=== PATIENT | female | born 2000 | race Caucasian/White ===

== ENCOUNTER → 2021-01-10 13:55 | Outpatient (CLI) | payer OTHER, SELFPAY ==
--- NOTE | 2021-01-10 14:01 | DI.RAD.S_ITS ---
PROCEDURE: XR KNEE LT 3V INDICATIONS: knee pain TECHNIQUE: 3 views of the knee were acquired. COMPARISON: None. FINDINGS: Bones: No fractures or dislocations. No suspicious bony lesions. Soft tissues: Moderate joint effusion. No suspicious soft tissue calcifications. IMPRESSION: Moderate effusion. No visualized acute fracture or dislocation. However, if clinical concern and/or pain persist, short interval imaging followup in 7-10 days is recommended, as occult injury cannot be definitively excluded. Dictated by: Bethanie Barbosa M.D. on 01/10/2021 at 14:21 Approved by: Bethanie Barbosa M.D. on 01/10/2021 at 14:23
== END ==
PROVIDERS: Referring Provider Physician Assistant; Visit Provider Physician Assistant
DX: M25.562 Pain in left knee (principal); M25.462 Effusion, left knee
CPT/HCPCS: 73562

== ENCOUNTER 2021-05-26 05:53 | Emergency (ER) | payer OTHER, SELFPAY ==
[2021-05-26 05:59] VITALS: BP 126/73; PULSE 83; RESP 18; TEMP 36.8; O2SAT 96; BMI 19.9
--- NOTE | 2021-05-26 06:07 | ED_ITS ---
HPI - Asthma General Chief Complaint: Asthma Stated Complaint: asthma attack Time Seen by Provider: 05/26/21 05:57 Source: patient Mode of arrival: Ambulatory History of Present Illness HPI Narrative: the patient is a 20-year-old female who presents with shortness of breath. She has a history of asthma. She says it has been controlled for number of years but was diagnosed when she was younger. she has never been hospitalized or intu bated. Yesterday she said she was not feeling great started having difficulty breathing early this morning about 1 hour prior to arrival today. She used her albuterol inhaler all having a coughing fit. She said that she looked it up on the Internet and she could use it every minute until her coughing. Which is what she did. She is no longer coughing but still feels wheezing and short of breath. She denies any fever chills or productive. Related Data Home Medications Medication Instructions Recorded Confirmed No Known Home Medications 01/10/21 01/10/21 Allergies Allergy/AdvReac Type Severity Reaction Status Date / Time No Known Drug Allergies Allergy Unverified 01/10/21 13:32 Review of Systems Review of Systems Narrative: GENERAL: Denies chills, fatigue, malaise, fever, sweats, travel HEENT: Denies sinus pain, ear pain, sore throat, difficulty swallowing, neck pain RESPIRATORY: See HPI CARDIOVASCULAR: Denies chest pain, palpitations, orthopnea, edema GASTROINTESTINAL: Denies nausea, vomiting, abdominal pain, diarrhea, constipation, melena. : Denies dysuria, frequency, incontinence, hematuria, urinary retention, flank pain. MUSCULOSKELETAL: Denies weakness, joint pain, or bony pain SKIN: No rash, no erythema, no pruritus NEUROLOGIC: Denies weakness, dizziness, headache, numbness, change in speech, confusion PSYCHIATRIC: No concerning psychosocial issues. 12 point review of systems is negative except for those stated above and HPI Patient History Medical History Asthma Social History Smoking Status: Current every day smoker Smoking Status: Current every day smoker tobacco type: vaping alcohol intake frequency: holidays/special occasions only Exam Initial Vital Signs Initial Vital Signs: Vital Signs Temperature 98.2 F 05/26/21 05:59 Pulse Rate 83 05/26/21 05:59 Respiratory Rate 18 05/26/21 05:59 Blood Pressure 126/73 05/26/21 05:59 Pulse Oximetry 96 05/26/21 05:59 GENERAL: [Well-appearing, well-nourished] and in [no acute] distress. HEENT: Head atraumatic,EOMI, pupils reactive, CARDIOVASCULAR: Regular rate and rhythm without murmurs, rubs or gallops. RESPIRATORY: Wheezing bilaterally no tachypnea speaking full sentences without any difficulty ABDOMEN: Soft, nontender. Normoactive bowel sounds all 4 quadrants. No guarding or rebound EXTREMITIES: Normal range of motion, no clubbing or edema. Neurovascularly intact NEUROLOGICAL: Alert and oriented x4.Normal gait and speech. SKIN: Warm, dry, no laceration, no petechiae, no rashes or lesions. Course Orders Ordered: Discontinued Medications Albuterol/Ipratropium (Albuterol/Ipratropium 3 Ml Ampul) 3 ml INH NOW ONE Stop: 05/26/21 06:07 Last Admin: 05/26/21 06:13 Dose: 3 ml Documented by: [email or web address] Vital Signs Vital signs: Vital Signs - 8 hr 05/26/21 05:59 05/26/21 06:13 Temperature 98.2 F Pulse Rate 83 95 H Respiratory Rate 18 18 Blood Pressure 126/73 Pulse Oximetry 96 95 MDM - Asthma MDM Narrative Medical decision making narrative: PATIENT IS FEELING BETTER AFTER A DUONEB. OXYGEN HAS BEEN GOOD THE WHOLE TIME. BREATHING HAS IMPROVED AFTER TREATMENT. AT THIS TIME I SEE NO NEED FOR STEROIDS. ENCOURAGED HER TO USE SPACER AND INHALER IS EVERY 4 HOURS TODAY. This time no need for antibiotics or further workup Discharge Plan Departure Patient Disposition: Home Clinical Impression: Asthma with acute exacerbation Instructions: DI for Asthma -- Adult Activity Restrictions/Additional Instructions: *You have been diagnosed with asthma exacerbation *What to do: use albuterol inhaler with spacer every 4 hours to today possibly tomorrow. I having an exacerbation due to probable infection or environmental issue. *Continue to take medications as directed Albuterol 1-2 puffs every 4 hours with spacer, or as needed for shortness of breath or coughing spell *Follow up with your primary care provider in 2-3 days or call [phone] *Return to ER if you should have increasing shortness of breath, chest pain, chest tightness, fever greater than 100.4 [or] any new, worsening or concerning symptoms Prescriptions: No Action No Known Home Medications 0RF Referrals: Miscellaneous,Doctor[facility] [Primary Care Provider] -
[2021-05-26 06:13] VITALS: PULSE 95; RESP 18; O2SAT 95
[2021-05-26] MEDS: ALBUTEROL/IPRATROPIUM 3 ML AMPUL INH (06:13)
== END 2021-05-26 06:51 | disposition home or self-care (01) ==
PROVIDERS: Emergency Provider Emergency Medicine
DX: J45.901 Unspecified asthma with (acute) exacerbation (principal)
CPT/HCPCS: 94640; 99283

== ENCOUNTER 2021-06-03 14:28 | Emergency (ER) | payer OTHER, BC, SELFPAY ==
[2021-06-03 14:55] VITALS: BP 133/66; PULSE 89; RESP 18; TEMP 36.8; O2SAT 95
--- NOTE | 2021-06-03 15:01 | DI.RAD.S_ITS ---
PROCEDURE: XR CHEST 1V INDICATIONS: chest pain TECHNIQUE: One view of the chest was acquired. COMPARISON: None. FINDINGS: Surgical changes and devices: None. Lungs and pleura: Lungs are clear. No pleural effusions or pneumothorax. Mediastinum: Mediastinal contours appear normal. Heart size is normal. Bones and chest wall: No suspicious bony lesions. There is 22.9? rightward curvature of the thoracic spine. Overlying soft tissues appear unremarkable. IMPRESSION: No acute cardiopulmonary findings. Right convex scoliosis. Dictated by: Rhonda Aguilar M.D. on 06/03/2021 at 15:30 Approved by: Rhonda Aguilar M.D. on 06/03/2021 at 15:30
--- NOTE | 2021-06-03 15:09 | ED.CHESTPAIN ---
HPI - Chest Pain <Tory Mcintosh [facility] - Last Filed: 06/03/21 16:23> General Chief Complaint: Chest Pain Stated Complaint: SHARP CHEST PAIN LEFT SIDE ASTHMA ATTACK A WK AGO Time Seen by Provider: 06/03/21 15:09 Source: patient Mode of arrival: Ambulatory History of Present Illness HPI narrative: 20-year-old female presents to the emergency department 1 week following acute exacerbation of her asthma complaining of left-sided chest pain which is reproducible with palpation. She states that she has been coughing and it has been painful with cough, deep breath, and most movements. She states that she acquired a nebulizer machine and has been doing her albuterol nebs which has improved her asthma. She states that she no longer feels short of breath, or wheezing, and her asthma exacerbation has improved. She has a pending appointment to establish primary care at [facility]. Patient endorses a history of scoliosis, she is not currently in physical therapy, she denies any recent trauma. She denies chest pain, shortness of breath or wheezing, nausea, fever. She states that her left chest, shoulder, and back up all been sore and tender to touch for the last 3-4 days. She states is been getting worse over the last few and she was not sure if she pulled a muscle or why it is painful. Patient states that she has seasonal allergies and she has not been taking any medications for this yet. Related Data Previous Rx's Medication Instructions Recorded albuterol sulfate 0.63 mg/3 mL 0.63 mg (3 mL) INHALATION QID PRN 05/28/21 solution for nebulization #75 ml cetirizine 10 mg tablet (Zyrtec) 10 mg PO DAILY PRN #30 tab 06/03/21 fluticasone propionate 50 1 spray INTRANASAL BID #16 g 06/03/21 mcg/actuation nasal spray,suspension lidocaine 5 % topical patch 1 patch TOPICAL DAILY #15 ea 06/03/21 (Lidoderm) methocarbamol 500 mg tablet 500 mg PO TID PRN #14 tab 06/03/21 montelukast 10 mg tablet 10 mg PO BEDTIME #30 tab 06/03/21 (Singulair) omeprazole magnesium 20 mg 20 mg PO DAILY #7 tab 06/03/21 tablet,delayed release prednisone 50 mg tablet 50 mg PO DAILY 5 Days #5 tab 06/03/21 Allergies Allergy/AdvReac Type Severity Reaction Status Date / Time No Known Drug Allergies Allergy Unverified 01/10/21 13:32 Review of Systems <AMBERLY Dinh - Last Filed: 06/03/21 16:23> Review of Systems Narrative: General: denies fever, chills, malaise, sweats, fatigue Head/Neck: denies headache, neck pain, dizziness Eyes: denies visual changes, eye pain Cardio: denies chest pain, palpitations, edema Respiratory: denies dyspnea, cough, orthopnea or shortness of breath with exertion, endorses occasional cough related to her allergies and asthma GI: denies abdominal pain, nausea, vomiting, or diarrhea : denies dysuria, hematuria, urinary retention, frequency or incontinence MSK: denies joint pain, muscle weakness, endorses left chest shoulder and back pain and soreness, is reproducible with palpation Skin: denies rash, itching, skin lesions or other Neuro: denies numbness, tingling Patient History <AMBERLY Dinh - Last Filed: 06/03/21 16:23> Medical History Asthma Social History Smoking Status: Current every day smoker Smoking Status: Current every day smoker tobacco type: vaping alcohol intake frequency: holidays/special occasions only Exam <AMBERLY Dinh - Last Filed: 06/03/21 16:23> Narrative Exam Narrative: Independently reviewed vitals signs and nursing notes. General: cooperative, comfortable, in no acute distress, well developed and well groomed Head: atraumatic, symmetrical facial expressions Neck: supple, atraumatic, without lymphadenopathy. Eyes: pupils equal round and reactive, EOMI, conjunctiva normal Nose: nares patent, no rhinorrhea Mouth/Throat: uvula midline, moist mucus membranes Cardiovascular: regular rate and rhythm, no peripheral edema, warm extremities Respiratory: normal effort, able to speak in complete sentences, scattered inspiratory and expiratory wheezes throughout all lung meng, no retractions or tachypnea. GI: abdomen soft, nontender to palpation, nondistended, no masses, no exquisite tenderness with exam, without guarding or rebound. MSK: moves all extremities, ambulatory w/steady gait, neurovascularly intact, no weakness Skin: brisk capillary refill, no rash, no erythema Neuro: normal speech and cognition, A&O x3, normal tone Psych: mental status is grossly normal, congruent mood, normal affect, pleasant and cooperative Initial Vital Signs Initial Vital Signs: Vital Signs Temperature 98.3 F 06/03/21 14:55 Pulse Rate 89 06/03/21 14:55 Respiratory Rate 18 06/03/21 14:55 Blood Pressure 133/66 06/03/21 14:55 Pulse Oximetry 95 06/03/21 14:55 <Jose Luis Flores DO - Last Filed: 06/04/21 10:35> Initial Vital Signs Initial Vital Signs: Vital Signs Temperature 98.3 F 06/03/21 14:55 Pulse Rate 89 06/03/21 14:55 Respiratory Rate 18 06/03/21 14:55 Blood Pressure 133/66 06/03/21 14:55 Pulse Oximetry 95 06/03/21 14:55 Course <AMBERLY Dinh - Last Filed: 06/03/21 16:23> Orders Ordered: Discontinued Medications Albuterol/Ipratropium (Albuterol/Ipratropium 3 Ml Ampul) 3 ml INH NOW ONE Stop: 06/03/21 15:19 Last Admin: 06/03/21 15:59 Dose: 3 ml Documented by: PANTERAIM Methocarbamol (Methocarbamol 500 Mg Tablet) 500 mg PO NOW ONE Stop: 06/03/21 15:19 Last Admin: 06/03/21 15:42 Dose: 500 mg Documented by: NURYS Montelukast Sodium (Montelukast 10 Mg Tablet) 10 mg PO DAILY BIN Montelukast Sodium (Montelukast 10 Mg Tablet) 10 mg PO NOW ONE Stop: 06/03/21 15:31 Last Admin: 06/03/21 15:42 Dose: 10 mg Documented by: NURYS Naproxen (Naproxen 250 Mg Tablet) 250 mg PO NOW ONE Stop: 06/03/21 15:19 Last Admin: 06/03/21 15:42 Dose: 250 mg Documented by: NURYS Pantoprazole Sodium (Pantoprazole Dr 20 Mg Tablet) 20 mg PO NOW ONE Stop: 06/03/21 15:22 Last Admin: 06/03/21 15:42 Dose: 20 mg Documented by: NURYS Prednisone (Prednisone 20 Mg Tablet) 50 mg PO NOW ONE Stop: 06/03/21 15:19 Last Admin: 06/03/21 15:40 Dose: 50 mg Documented by: NURYS Vital Signs Vital signs: Vital Signs - 8 hr 06/03/21 14:55 06/03/21 15:46 06/03/21 15:47 Temperature 98.3 F Pulse Rate 89 78 80 Respiratory Rate 18 Blood Pressure 133/66 125/83 Pulse Oximetry 95 93 98 06/03/21 16:00 Temperature Pulse Rate 61 Respiratory Rate Blood Pressure 123/89 Pulse Oximetry 100 <Jose Luis Flores DO - Last Filed: 06/04/21 10:35> Orders Ordered: Discontinued Medications Albuterol/Ipratropium (Albuterol/Ipratropium 3 Ml Ampul) 3 ml INH NOW ONE Stop: 06/03/21 15:19 Last Admin: 06/03/21 15:59 Dose: 3 ml Documented by: MKIM Methocarbamol (Methocarbamol 500 Mg Tablet) 500 mg PO NOW ONE Stop: 06/03/21 15:19 Last Admin: 06/03/21 15:42 Dose: 500 mg Documented by: NRUYS Montelukast Sodium (Montelukast 10 Mg Tablet) 10 mg PO DAILY BIN Montelukast Sodium (Montelukast 10 Mg Tablet) 10 mg PO NOW ONE Stop: 06/03/21 15:31 Last Admin: 06/03/21 15:42 Dose: 10 mg Documented by: NURYS Naproxen (Naproxen 250 Mg Tablet) 250 mg PO NOW ONE Stop: 06/03/21 15:19 Last Admin: 06/03/21 15:42 Dose: 250 mg Documented by: NURYS Pantoprazole Sodium (Pantoprazole Dr 20 Mg Tablet) 20 mg PO NOW ONE Stop: 06/03/21 15:22 Last Admin: 06/03/21 15:42 Dose: 20 mg Documented by: NURYS Prednisone (Prednisone 20 Mg Tablet) 50 mg PO NOW ONE Stop: 06/03/21 15:19 Last Admin: 06/03/21 15:40 Dose: 50 mg Documented by: NURYS Vital Signs Vital signs: Vital Signs - 8 hr 06/03/21 14:55 06/03/21 15:46 06/03/21 15:47 Temperature 98.3 F Pulse Rate 89 78 80 Respiratory Rate 18 Blood Pressure 133/66 125/83 Pulse Oximetry 95 93 98 06/03/21 16:00 Temperature Pulse Rate 61 Respiratory Rate Blood Pressure 123/89 Pulse Oximetry 100 MDM - Chest Pain <AMBERLY Dinh - Last Filed: 06/03/21 16:23> Lab Data Result diagrams: 06/03/21 15:30 Labs: Lab Results 06/03/21 06/03/21 Range/Units 10:28 15:30 Sodium 139 (137-145) mmol/L Potassium 3.8 (3.4-5.1) mmol/L Chloride 104 (98-107) mmol/L Carbon Dioxide 25 (22-32) mmol/L BUN 12 (7-17) mg/dL Creatinine 0.68 (0.52-1.04) mg/dL Estimated GFR > 60.0 (>60) mL/min BUN/Creatinine Ratio 17.6 (6-22) Glucose 77 (70-100) mg/dL Calcium 8.8 (8.4-10.2) mg/dL Magnesium 2.1 (1.6-2.3) mg/dL Total Bilirubin 0.5 (0.2-1.3) mg/dL AST 21 (14-36) IU/L ALT 16 (<35) IU/L Alkaline Phosphatase 109 (38-126) U/L Total Creatine Kinase 43 (30-135) U/L CK-MB (CK-2) TNP CK-MB (CK-2) Rel Index TNP Troponin I < 0.012 (0.01-0.034) ng/mL Total Protein 7.8 (6.3-8.2) g/dL Albumin 4.3 (3.5-5.0) g/dL Globulin 3.5 (1.7-4.1) g/dL Albumin/Globulin Ratio 1.2 (1.0-2.8) Lipase 82 (23-300) U/L SARS-CoV-2 (PCR) Negative (Negative) Imaging Data Chest x-ray: Radiologist's Impression: PROCEDURE:? XR CHEST 1V ? INDICATIONS:? chest pain ? TECHNIQUE:? One view of the chest was acquired.? ? COMPARISON:? None. ? FINDINGS:? ? Surgical changes and devices:? None.? ? Lungs and pleura:? Lungs are clear.? No pleural effusions or pneumothorax.? ? Mediastinum:? Mediastinal contours appear normal.? Heart size is normal.? ? Bones and chest wall:? No suspicious bony lesions.? There is 22.9? rightward curvature of the thoracic spine.? Overlying soft tissues appear unremarkable.? ? IMPRESSION:? No acute cardiopulmonary findings. Right convex scoliosis.? ? Dictated by: Rhonda Aguilar M.D. on 06/03/2021 at 15:30 ? ? Approved by: Rhonda Aguilar M.D. on 06/03/2021 at 15:30 ? MDM Narrative Medical decision making narrative: This is a 20-year-old female presents to the emergency department 1 week after being treated for an asthma exacerbation stating she has left sided rib shoulder and back pain muscle tension. On Physical exam patient had scattered inspiratory and expiratory wheezes. She states that she has been using a nebulizer machine at home and her asthma symptoms have improved. She is here for this left-sided costochondral pain which is reproducible with palpation, left arm movements, deep inspiration, and coughing. She has been afebrile, denies any nausea, vomiting, shortness of breath, shortness of breath with exertion, weakness, sensation changes, dizziness, trauma, or other problem. On chest x-ray patient did not have any rib fractures, pneumothorax, or acute cardiopulmonary abnormality. Was notable that she has right convex scoliosis with a 22.9 degree rightward curvature of the thoracic spine. Patient states that she has had this problem as long as she is known, she is not currently in any physical therapy however she wishes to address it. Patient is pending a primary care appointment with a new provider at [facility]. Today patient was treated for an asthma exacerbation, has significant seasonal allergies, she requested Zyrtec and Singulair and these were prescribed for her, additionally she is given fluticasone, lidocaine patches for her costochondral pain, prednisone for 5 days for her asthma exacerbation with omeprazole for GI ulcer prophylaxis. She states that she has plenty albuterol nebulizers at home. She understands to follow-up with her primary care provider when she establishes care, return to the emergency department for any new or worsening shortness of breath, fever, chest pain, or other concerns. Multiple causes of chest pain considered including RI, PE, pneumothorax, pneumonia, aortic dissection, and pleurisy. Patient reports no radiation, no diaphoresis, no provocation with exertion, and no vomiting. Patient was given 1 DuoNeb in the emergency department which greatly improved her inspiratory and expiratory wheezes, only scattered occasional expiratory wheezes were heard after her neb. patient was not in any respiratory distress. Patient Is appropriate and amenable to discharge home. Vital signs are stable on repeat examination is unremarkable. Patient has been informed of results. Patient has been given strict return to ER precautions for any new or worsening symptoms. Patient understands to follow up closely with outpatient providers as instructed. Patient understands plan and agrees to discharge home. All questions and concerns answered at this time. <Jose Luis Flores DO - Last Filed: 06/04/21 10:35> Lab Data Labs: Lab Results 06/03/21 06/03/21 Range/Units 10:28 15:30 Sodium 139 (137-145) mmol/L Potassium 3.8 (3.4-5.1) mmol/L Chloride 104 (98-107) mmol/L Carbon Dioxide 25 (22-32) mmol/L BUN 12 (7-17) mg/dL Creatinine 0.68 (0.52-1.04) mg/dL Estimated GFR > 60.0 (>60) mL/min BUN/Creatinine Ratio 17.6 (6-22) Glucose 77 (70-100) mg/dL Calcium 8.8 (8.4-10.2) mg/dL Magnesium 2.1 (1.6-2.3) mg/dL Total Bilirubin 0.5 (0.2-1.3) mg/dL AST 21 (14-36) IU/L ALT 16 (<35) IU/L Alkaline Phosphatase 109 (38-126) U/L Total Creatine Kinase 43 (30-135) U/L CK-MB (CK-2) TNP CK-MB (CK-2) Rel Index TNP Troponin I < 0.012 (0.01-0.034) ng/mL Total Protein 7.8 (6.3-8.2) g/dL Albumin 4.3 (3.5-5.0) g/dL Globulin 3.5 (1.7-4.1) g/dL Albumin/Globulin Ratio 1.2 (1.0-2.8) Lipase 82 (23-300) U/L SARS-CoV-2 (PCR) Negative (Negative) Discharge Plan Departure Patient Disposition: Home Clinical Impression: Costal chondritis, Acute seasonal allergic rhinitis Asthma with acute exacerbation Qualifiers: Asthma severity: moderate Scoliosis Qualifiers: Scoliosis type: unspecified scoliosis Spinal region: thoracic Qualified Code(s): M41.9 - Scoliosis, unspecified Instructions: Asthma -- Adult, DI for Costochondritis, Scoliosis-Adult Activity Restrictions/Additional Instructions: *You have been diagnosed with costochondritis and an acute asthma exacerbation. Please take the prednisone for the next 5 days in the morning. Use the methocarbamol every 8 hours as needed for the left chest pain. Please use your montelukast, cetirizine and omeprazole daily. You may stop taking the omeprazole after you are done with steroids. Please use ibuprofen and Tylenol as needed for pain. You can use lidocaine patches over this area on your chest as needed. Please use the Flonase nasal spray as needed for your allergies morning and night. I recommend physical therapy for your scoliosis, please ask your primary care provider for a referral when you establish care. Thank you for trusting us with your care, I hope you are feeling better soon and are able to establish care with a primary care provider soon. Please mention that you need follow-up from the emergency department visit you had today. This may help you get in sooner. *What to do: *Please continue to take your regular medications as directed. [ x] New medication prescriptions sent to your pharmacy: [[facility] ] [ ] New medication written as a paper prescription [ ] No new medications given *Please follow up with your primary care provider in 2-3 days, call for an appointment. Let them know you were seen in the Emergency Department and that we asked that you be seen for follow-up. We will electronically transmit a record of today's note if your PCP is in our system *If you do not have a primary care provider please contact [phone] to establish care with one of the [facility] primary care providers. *Return to Emergency Department if you should have any new, worsening or concerning symptoms, such as [fever greater than 101F, chills, worsening pain, persistent vomiting or other bothersome symptoms] Prescriptions: New prednisone 50 mg tablet 50 mg PO DAILY 5 Days Qty: 5 0RF montelukast [Singulair] 10 mg tablet 10 mg PO BEDTIME Qty: 30 0RF cetirizine [Zyrtec] 10 mg tablet 10 mg PO DAILY PRN (Reason: allergy symptoms) Qty: 30 0RF fluticasone propionate 50 mcg/actuation spray,suspension 1 spray intranasal BID Qty: 16 0RF Rx Instructions: administer into each nostril methocarbamol 500 mg tablet 500 mg PO TID PRN (Reason: muscle spasm) Qty: 14 0RF lidocaine [Lidoderm] 5 % adhesive patch,medicated 1 patch topical DAILY Qty: 15 0RF Rx Instructions: leave on most painful area for up to 12 hrs omeprazole magnesium 20 mg tablet,delayed release (DR/EC) 20 mg PO DAILY Qty: 7 0RF No Action albuterol sulfate 0.63 mg/3 mL solution for nebulization 0.63 mg INHALATION QID PRN (Reason: shortness of breath or wheezing) Qty: 75 0RF Stand Alone Forms: Work Release Note <Jose Luis Flores DO - Last Filed: 06/04/21 10:35> Cosign ED Attending Cosignature Attestation: I was immediately available in the department for consultation. This documentation has been reviewed and I agree with assessment and plan. Supervised by Jose Luis Flores DO
[2021-06-03] MEDS: predniSONE 20 MG TABLET 50 MG PO (15:40)
[2021-06-03] MEDS: methocarbamoL 500 MG TABLET PO (15:42)
[2021-06-03] MEDS: PANTOPRAZOLE DR 20 MG TABLET PO (15:42)
[2021-06-03] MEDS: NAPROXEN 250 MG TABLET PO (15:42)
[2021-06-03] MEDS: MONTELUKAST 10 MG TABLET PO (15:42)
[2021-06-03 15:46] VITALS: PULSE 78; O2SAT 93
[2021-06-03 15:47] VITALS: BP 125/83; PULSE 80; O2SAT 98
[2021-06-03 15:53] LABS: COVID19 -Nasal RAPID Negative (Negative)
[2021-06-03] MEDS: ALBUTEROL/IPRATROPIUM 3 ML AMPUL INH (15:59)
[2021-06-03 16:00] VITALS: BP 123/89; PULSE 61; O2SAT 100; O2SAT 98
[2021-06-03 16:00] LABS: Alanine Aminotransferase 16 IU/L (<35); Albumin 4.3 g/dL (3.5-5.0); Albumin Globulin Ratio 1.2 (1.0-2.8); Alkaline Phosphatase 109 U/L (38-126); Aspartate Aminotransferase 21 IU/L (14-36); BUN Creatinine Ratio 17.6 (6-22); Bilirubin Total 0.5 mg/dL (0.2-1.3); Blood Urea Nitrogen 12 mg/dL (7-17); Calcium 8.8 mg/dL (8.4-10.2); Carbon Dioxide 25 mmol/L (22-32); Chloride 104 mmol/L (98-107); Creatine Kinase 43 U/L (30-135); Estimated Glomerular Filt Rate > 60.0 mL/min (>60); Globulin 3.5 g/dL (1.7-4.1); Glucose 77 mg/dL (70-100); HEMOLYSIS < 15 (0-50); Lipase 82 U/L (23-300); Magnesium 2.1 mg/dL (1.6-2.3); Potassium 3.8 mmol/L (3.4-5.1); Sodium 139 mmol/L (137-145); Total Protein 7.8 g/dL (6.3-8.2)
[2021-06-03 16:13] LABS: Troponin I < 0.012 ng/mL (0.01-0.034)
== END 2021-06-03 16:29 | disposition home or self-care (01) ==
PROVIDERS: Emergency Medicine; Emergency Provider Nurse Practitioner Critical Care Medicine
DX: M94.0 Chondrocostal junction syndrome [Tietze] (principal); J30.2 Other seasonal allergic rhinitis; J45.41 Moderate persistent asthma with (acute) exacerbation; M41.9 Scoliosis, unspecified; F17.290 Nicotine dependence, other tobacco product, uncomplicated; Z20.822 Contact with and (suspected) exposure to COVID-19
CPT/HCPCS: 36415; 71045; 80053; 82550; 83690; 83735; 84484; 87635; 93005; 93010; 94640; 99284; C9803

== ENCOUNTER 2021-07-20 12:16 | Emergency (ER) | payer OTHER, BC, SELFPAY ==
[2021-07-20 12:19] VITALS: BP 128/89; PULSE 90; RESP 18; TEMP 36.9; O2SAT 94; BMI 18.6
--- NOTE | 2021-07-20 12:25 | DI.RAD.S_ITS ---
PROCEDURE: XR CHEST 2V INDICATIONS: shortness of breath TECHNIQUE: 2 views of the chest were acquired. COMPARISON: [facility], , XR CHEST 1V, 06/03/2021, 14:52. FINDINGS: Surgical changes and devices: None. Lungs and pleura: Lungs are clear. No pleural effusions or pneumothorax. Mediastinum: Mediastinal contours are normal. Heart size is normal. Bones and chest wall: No suspicious bony abnormalities. Soft tissues appear unremarkable. IMPRESSION: No acute process. Dictated by: Rodrick Villa M.D. on 07/20/2021 at 13:12 Approved by: Rodrick Villa M.D. on 07/20/2021 at 13:12
[2021-07-20] MEDS: ALBUTEROL 2.5 MG/3 ML NEB (ADULT) INH (12:34)
[2021-07-20 12:36] VITALS: O2SAT 97
[2021-07-20 12:43] LABS: COVID19 -Nasal RAPID Negative (Negative)
[2021-07-20 13:23] LABS: Add Manual Diff / Slide Review NO; Basophils Absolute Auto 300 /uL (0-100); Basophils Percent Auto 2.5 % (0-2); Eosinophils Absolute Auto 1300 /uL (0-450); Eosinophils Percent Auto 12.4 % (2-4); Hematocrit 40.8 % (36-46); Lymphocytes Absolute Auto 1300 /uL (1100-4500); Lymphocytes Percent Auto 12.2 % (25-40); Mean Corpuscular HGB Conc 34.4 % (30-36); Mean Corpuscular Volume 87.1 fL (80-100); Monocytes Absolute Auto 700 /uL (0-900); Monocytes Percent Auto 6.3 % (3-14); Neutrophils Absolute Auto 7200 /uL (1500-7000); Neutrophils Percent Auto 66.6 % (50-75); Platelet Count 230 X10^3/uL (150-400); Red Blood Cell Count 4.68 X10^6/uL (4.0-5.2); Red Cell Distribution Width 13.8 % (11.6-14.8); White Blood Cell Count 10.8 X10^3/uL (4.5-11.0)
[2021-07-20 13:31] LABS: Lactate (Lactic Acid) 1.6 mmol/L (0.7-2.1)
[2021-07-20 13:33] LABS: Alanine Aminotransferase 14 IU/L (<35); Albumin 4.5 g/dL (3.5-5.0); Albumin Globulin Ratio 1.2 (1.0-2.8); Alkaline Phosphatase 122 U/L (38-126); Aspartate Aminotransferase 22 IU/L (14-36); BUN Creatinine Ratio 9.1 (6-22); Blood Urea Nitrogen 6 mg/dL (7-17); Carbon Dioxide 22 mmol/L (22-32); Chloride 106 mmol/L (98-107); Estimated Glomerular Filt Rate > 60 mL/min (>60); Globulin 3.7 g/dL (1.7-4.1); Glucose 108 mg/dL (70-100); HEMOLYSIS < 15 (0-50); Potassium 3.5 mmol/L (3.4-5.1); Sodium 141 mmol/L (137-145); Total Protein 8.2 g/dL (6.3-8.2)
--- NOTE | 2021-07-20 14:06 | ED.SOB ---
HPI - SOB/Dyspnea General Chief Complaint: Shortness of Breath/Dyspnea Stated Complaint: Asthma Time Seen by Provider: 07/20/21 13:46 Source: patient Mode of arrival: Ambulatory Limitations: no limitations History of Present Illness HPI Narrative: The patient has a history of asthma, her entire life. She developed increased cough with dyspnea wheezing 4 days ago. Albuterol was working for 5-10 minutes only. She uses a spacer. She has no headache, no rhinorrhea no sore throat. Cough is not productive. She has no fever chills. She is a smoker. In addition asthma medications, she is also on allergy medications. She has no chest pain, no GI symptoms, no rashes. There is no suggestion of acute illness. Related Data Previous Rx's Medication Instructions Recorded albuterol sulfate 0.63 mg/3 mL 0.63 mg (3 mL) INHALATION QID PRN 05/28/21 solution for nebulization #75 ml cetirizine 10 mg tablet (Zyrtec) 10 mg PO DAILY PRN #30 tab 06/03/21 lidocaine 5 % topical patch 1 patch TOPICAL DAILY #15 ea 06/03/21 (Lidoderm) methocarbamol 500 mg tablet 500 mg PO TID PRN #14 tab 06/03/21 omeprazole magnesium 20 mg 20 mg PO DAILY #7 tab 06/03/21 tablet,delayed release albuterol sulfate 90 mcg/actuation 1 inh INHALATION Q4-6H PRN #8.5 g 06/25/21 aerosol inhaler beclomethasone dipropionate 80 1 inh INHALATION BID #10.6 g 06/25/21 mcg/actuation HFA breath activated aerosol (Qvar RediHaler) fluticasone propionate 50 See Rx Instructions .ROUTE 07/08/21 mcg/actuation nasal .COMPLEX #16 g spray,suspension montelukast 10 mg tablet See Rx Instructions .ROUTE 07/08/21 .COMPLEX #30 tab prednisone 20 mg tablet 60 mg PO DAILY 5 Days #15 tab 07/20/21 Allergies Allergy/AdvReac Type Severity Reaction Status Date / Time No Known Drug Allergies Allergy Unverified 06/25/21 09:22 Review of Systems Review of Systems ROS Unobtainable: All systems reviewed & are unremarkable except as noted in HPI and below Patient History Medical History Asthma Social History Smoking Status: Current every day smoker alcohol intake: current (Occasionally ) substance use type: marijuana (Some days ) Smoking Status: Current every day smoker tobacco type: vaping alcohol intake frequency: holidays/special occasions only Substance Use Type: does not use Exam Initial Vital Signs Initial Vital Signs: Vital Signs Temperature 98.4 F 07/20/21 12:19 Pulse Rate 90 07/20/21 12:19 Respiratory Rate 18 07/20/21 12:19 Blood Pressure 128/89 07/20/21 12:19 Pulse Oximetry 94 07/20/21 12:19 Const General: cooperative, healthy appearing, comfortable and well groomed HENMT Head: normal to inspection Face and sinus: normal facial exam and sinuses nontender Mouth: oropharynx normal Throat: posterior oropharynx normal Neck Neck: full ROM and No lymphadenopathy Resp Other: expiratory wheezes in all lung meng. No rales or rhonchi. Cardio Rate: regular rate Rhythm: regular rhythm Heart Sounds: S1 normal, S2 normal, no click, no murmurs and no rubs GI Palpation: soft Auscultation: normal bowel sounds Skin General: no rashes or lesions noted Neuro General: patient alert, patient awake, patient oriented x3 and no focal motor deficits Course Course Course Narrative: The patient was given DuoNeb the prednisone. She has residual slight wheezes. Her albuterol inhaler is empty, she has not refilled. She was treated with 2 puffs of albuterol, and dispensed a new inhaler. Lungs are clear at time of discharge Orders Ordered: ED Orders 07/20/21 12:25 XR chest 2V Stat Measure peak expiratory flow ONCE RT Consult Eval and Treat Now 07/20/21 12:26 COVID19 -Nasal RAPID/Pre-Proc Stat 07/20/21 13:05 Complete Blood Count AUTO DIFF Stat Comprehensive Metabolic Panel Stat Lactate (Lactic Acid) Stat Discontinued Medications Albuterol (Albuterol 2.5 Mg/3 Ml Neb (Adult)) 2.5 mg INH NOW ONE Stop: 07/20/21 12:25 Last Admin: 07/20/21 12:34 Dose: 2.5 mg Documented by: [email or web address] Albuterol (Albuterol Hfa Prepack) 1 box MISC SEEINSTR ONE Stop: 07/20/21 15:51 Last Admin: 07/20/21 16:03 Dose: 1 box Documented by: JYOTI Albuterol/Ipratropium (Albuterol/Ipratropium 3 Ml Ampul) 3 ml INH NOW ONE Stop: 07/20/21 14:07 Last Admin: 07/20/21 14:22 Dose: 3 ml Documented by: ELYSIA Prednisone (Prednisone 20 Mg Tablet) 60 mg PO NOW ONE Stop: 07/20/21 14:07 Last Admin: 07/20/21 14:21 Dose: 60 mg Documented by: JACQUELIN Vital Signs Vital signs: Vital Signs - 8 hr 07/20/21 12:19 07/20/21 12:36 07/20/21 14:24 Temperature 98.4 F Pulse Rate 90 82 Respiratory Rate 18 16 Blood Pressure 128/89 Pulse Oximetry 94 97 99 07/20/21 16:04 Temperature Pulse Rate 77 Respiratory Rate 18 Blood Pressure 125/80 Pulse Oximetry 96 MDM - SOB/Dyspnea Lab Data Result diagrams: 07/20/21 13:05 07/20/21 13:05 Labs: Lab Results 07/20/21 07/20/21 07/20/21 Range/Units 12:26 13:05 13:05 WBC 10.8 (4.5-11.0) X10^3/uL RBC 4.68 (4.0-5.2) X10^6/uL Hgb 14.0 (12.0-16.0) g/dL Hct 40.8 (36-46) % MCV 87.1 (80-100) fL MCH 30.0 (26-34) PG MCHC 34.4 (30-36) % RDW 13.8 (11.6-14.8) % Plt Count 230 (150-400) X10^3/uL Neut % (Auto) 66.6 (50-75) % Lymph % (Auto) 12.2 L (25-40) % [place] % (Auto) 6.3 (3-14) % Eos % (Auto) 12.4 H (2-4) % Baso % (Auto) 2.5 H (0-2) % Neut # (Auto) 7200 H (3065-0635) /uL Lymph # (Auto) 1300 (4932-6987) /uL [place] # (Auto) 700 (0-900) /uL Eos # (Auto) 1300 H (0-450) /uL Baso # (Auto) 300 H (0-100) /uL Sodium 141 (137-145) mmol/L Potassium 3.5 (3.4-5.1) mmol/L Chloride 106 (98-107) mmol/L Carbon Dioxide 22 (22-32) mmol/L BUN 6 L (7-17) mg/dL Creatinine 0.66 (0.52-1.04) mg/dL Estimated GFR > 60 (>60) mL/min BUN/Creatinine Ratio 9.1 (6-22) Glucose 108 H (70-100) mg/dL Lactate (0.7-2.1) mmol/L Calcium 9.0 (8.4-10.2) mg/dL Total Bilirubin 1.0 (0.2-1.3) mg/dL AST 22 (14-36) IU/L ALT 14 (<35) IU/L Alkaline Phosphatase 122 (38-126) U/L Total Protein 8.2 (6.3-8.2) g/dL Albumin 4.5 (3.5-5.0) g/dL Globulin 3.7 (1.7-4.1) g/dL Albumin/Globulin Ratio 1.2 (1.0-2.8) SARS-CoV-2 (PCR) Negative (Negative) 07/20/21 Range/Units 13:05 WBC (4.5-11.0) X10^3/uL RBC (4.0-5.2) X10^6/uL Hgb (12.0-16.0) g/dL Hct (36-46) % MCV (80-100) fL MCH (26-34) PG MCHC (30-36) % RDW (11.6-14.8) % Plt Count (150-400) X10^3/uL Neut % (Auto) (50-75) % Lymph % (Auto) (25-40) % [place] % (Auto) (3-14) % Eos % (Auto) (2-4) % Baso % (Auto) (0-2) % Neut # (Auto) (5372-0713) /uL Lymph # (Auto) (0264-1228) /uL [place] # (Auto) (0-900) /uL Eos # (Auto) (0-450) /uL Baso # (Auto) (0-100) /uL Sodium (137-145) mmol/L Potassium (3.4-5.1) mmol/L Chloride (98-107) mmol/L Carbon Dioxide (22-32) mmol/L BUN (7-17) mg/dL Creatinine (0.52-1.04) mg/dL Estimated GFR (>60) mL/min BUN/Creatinine Ratio (6-22) Glucose (70-100) mg/dL Lactate 1.6 (0.7-2.1) mmol/L Calcium (8.4-10.2) mg/dL Total Bilirubin (0.2-1.3) mg/dL AST (14-36) IU/L ALT (<35) IU/L Alkaline Phosphatase (38-126) U/L Total Protein (6.3-8.2) g/dL Albumin (3.5-5.0) g/dL Globulin (1.7-4.1) g/dL Albumin/Globulin Ratio (1.0-2.8) SARS-CoV-2 (PCR) (Negative) Imaging Data Chest x-ray: Radiologist's Impression: Normal Discharge Plan Departure Patient Disposition: Home Clinical Impression: Asthma with exacerbation Instructions: DI for Asthma -- Adult Activity Restrictions/Additional Instructions: Albuterol 2 puffs every 4 hours for cough/wheezing. Prednisone 60 mg daily for 5 days. The medication has been electronically forwarded to [facility]'s pharmacy. Stop smoking as soon as possible. Contact her doctor for follow-up. Discussed her current medications, you may need symptoms in addition to the albuterol for your asthma. Return here as needed. Prescriptions: New prednisone 20 mg tablet 60 mg PO DAILY 5 Days Qty: 15 0RF No Action montelukast 10 mg tablet See Rx Instructions .ROUTE .COMPLEX Qty: 30 0RF Dose Instruction: TAKE 1 TABLET BY MOUTH AT BEDTIME FOR ASTHMA Rx Instructions: TAKE 1 TABLET BY MOUTH AT BEDTIME FOR ASTHMA fluticasone propionate 50 mcg/actuation spray,suspension See Rx Instructions .ROUTE .COMPLEX Qty: 16 0RF Dose Instruction: SHAKE LIQUID AND USE 1 SPRAY IN EACH NOSTRIL TWICE DAILY FOR ALLERGY SYMPTOMS Rx Instructions: SHAKE LIQUID AND USE 1 SPRAY IN EACH NOSTRIL TWICE DAILY FOR ALLERGY SYMPTOMS Qvar RediHaler 80 mcg/actuation HFA aerosol breath activated 1 inh inhalation BID Qty: 10.6 5RF Rx Instructions: administer with spacer albuterol sulfate 90 mcg/actuation HFA aerosol inhaler 1 inh inhalation Q4-6H PRN (Reason: shortness of breath or wheezing) Qty: 8.5 5RF albuterol sulfate 0.63 mg/3 mL solution for nebulization 0.63 mg INHALATION QID PRN (Reason: shortness of breath or wheezing) Qty: 75 0RF cetirizine [Zyrtec] 10 mg tablet 10 mg PO DAILY PRN (Reason: allergy symptoms) Qty: 30 0RF methocarbamol 500 mg tablet 500 mg PO TID PRN (Reason: muscle spasm) Qty: 14 0RF lidocaine [Lidoderm] 5 % adhesive patch,medicated 1 patch topical DAILY Qty: 15 0RF Rx Instructions: leave on most painful area for up to 12 hrs omeprazole magnesium 20 mg tablet,delayed release (DR/EC) 20 mg PO DAILY Qty: 7 0RF Referrals: Brigid Jewell MD [Primary Care Provider] -
[2021-07-20] MEDS: predniSONE 20 MG TABLET 60 MG PO (14:21)
[2021-07-20] MEDS: ALBUTEROL/IPRATROPIUM 3 ML AMPUL INH (14:22)
[2021-07-20 14:24] VITALS: PULSE 82; RESP 16; O2SAT 99
[2021-07-20] MEDS: ALBUTEROL HFA PREPACK 1 BOX MISC (16:03)
[2021-07-20 16:04] VITALS: BP 125/80; PULSE 77; RESP 18; O2SAT 96
== END 2021-07-20 16:17 | disposition home or self-care (01) ==
PROVIDERS: Emergency Provider Emergency Medicine; PCP Family Medicine
DX: J45.901 Unspecified asthma with (acute) exacerbation (principal); Z20.822 Contact with and (suspected) exposure to COVID-19
CPT/HCPCS: 71046; 80053; 83605; 85025; 87635; 94150; 94640; 99283; C9803; J7613

== ENCOUNTER 2022-01-18 01:40 | Emergency (ER) | payer OTHER, BC, SELFPAY ==
[2022-01-18] VITALS (15 sets, daily range): BP systolic 105–184; BP diastolic 53–94; PULSE 92–133; RESP 26–32; TEMP 36.3; O2SAT 84–98; BMI 17.9
[2022-01-18] MEDS: ALBUTEROL 2.5 MG/3 ML NEB (ADULT) INH (01:51)
[2022-01-18] MEDS: ALBUTEROL 2.5 MG/3 ML NEB (ADULT) 20 MG INH (01:58)
[2022-01-18] MEDS: methylPREDNISolone 125 MG/2 ML VIAL IV (02:05)
[2022-01-18] MEDS: SODIUM CHLORIDE 0.9% 1,000 ML 1000 ML IV (02:05)
[2022-01-18 02:06] LABS: Add Manual Diff / Slide Review NO; Basophils Absolute Auto 100 /uL (0-100); Basophils Percent Auto 0.9 % (0-2); Eosinophils Absolute Auto 1400 /uL (0-450); Eosinophils Percent Auto 9.1 % (2-4); Hematocrit 44.7 % (36-46); Lymphocytes Absolute Auto 5400 /uL (1100-4500); Lymphocytes Percent Auto 34.4 % (25-40); Mean Corpuscular HGB Conc 33.6 % (30-36); Mean Corpuscular Hemoglobin 29.9 PG (26-34); Monocytes Absolute Auto 1300 /uL (0-900); Monocytes Percent Auto 8.2 % (3-14); Neutrophils Absolute Auto 7400 /uL (1500-7000); Neutrophils Percent Auto 47.4 % (50-75); Platelet Count 315 X10^3/uL (150-400); Red Blood Cell Count 5.02 X10^6/uL (4.0-5.2); Red Cell Distribution Width 13.4 % (11.6-14.8); White Blood Cell Count 15.7 X10^3/uL (4.5-11.0)
--- NOTE | 2022-01-18 02:06 | DI.RAD.S_ITS ---
PROCEDURE: XR CHEST 1V INDICATIONS: hypoxic TECHNIQUE: One view of the chest was acquired. COMPARISON: [facility], CR, XR CHEST 1V, 06/03/2021, 14:52. [facility], CR, XR CHEST 2V, 07/20/2021, 12:15. FINDINGS: Surgical changes and devices: None. Lungs and pleura: Lungs are clear. No pleural effusions or pneumothorax. Mediastinum: Mediastinal contours appear normal. Heart size is normal. Bones and chest wall: No suspicious bony lesions. Mild dextroconvex scoliotic curvature is seen. Overlying soft tissues appear unremarkable. IMPRESSION: No acute cardiopulmonary process is seen. Dictated by: Deniz Art M.D. on 01/18/2022 at 10:04 Approved by: Deniz Art M.D. on 01/18/2022 at 10:05
--- NOTE | 2022-01-18 02:12 | PC.NURSE ---
xray at bedside
[2022-01-18 02:13] LABS: Alanine Aminotransferase 21 IU/L (<35); Albumin 4.7 g/dL (3.5-5.0); Albumin Globulin Ratio 1.3 (1.0-2.8); Alkaline Phosphatase 130 U/L (38-126); Aspartate Aminotransferase 26 IU/L (14-36); BUN Creatinine Ratio 15.9 (6-22); Bilirubin Total 0.5 mg/dL (0.2-1.3); Blood Urea Nitrogen 14 mg/dL (7-17); Calcium 8.9 mg/dL (8.4-10.2); Carbon Dioxide 24 mmol/L (22-32); Chloride 107 mmol/L (98-107); Estimated Glomerular Filt Rate > 60 mL/min (>60); Globulin 3.7 g/dL (1.7-4.1); Glucose 86 mg/dL (70-100); HEMOLYSIS 24 (0-50); Magnesium 2.1 mg/dL (1.6-2.3); Potassium 4.1 mmol/L (3.4-5.1); Sodium 144 mmol/L (137-145); Total Protein 8.4 g/dL (6.3-8.2)
--- NOTE | 2022-01-18 03:00 | PC.NURSE ---
up to bedside commode - HHN tx continues
--- NOTE | 2022-01-18 03:45 | PC.NURSE ---
pt on room air - states that she feels better at this time - resting quietly - relates that she feels jittery from all the albuterol otherwise breathing better
[2022-01-18 03:48] LABS: Adenovirus Not Detected (Not Detect); B. parapertussis Not Detected (Not Detecte); Bordetella pertussis Not Detected (Not Detecte); Chlamydophila pneumoniae Not Detected (Not Detect); Coronavirus 229E Not Detected (Not Detect); Coronavirus HKU1 Not Detected (Not Detect); Coronavirus NL 63 Not Detected (Not Detect); Coronavirus OC43 Not Detected (Not Detect); Human Metapneumovirus Not Detected (Not Detect); Human Rhinovirus/Enterovirus Not Detected (Not Detect); Influenza A Not Detected (Not Detect); Influenza B Not Detected (Not Detect); Mycoplasma pneumoniae Not Detected (Not Detect); Parainfluenza Virus 1 Not Detected (Not Detect); Parainfluenza Virus 2 Not Detected (Not Detect); Parainfluenza Virus 3 Not Detected (Not Detect); Parainfluenza Virus 4 Not Detected (Not Detect); Respiratory Syncytial Virus Not Detected (Not Detect); SARS- CoV-2 Not Detected (Not Detecte)
--- NOTE | 2022-01-18 04:30 | PC.NURSE ---
Resting quietly with eyes closed - PWD with respirations equal and unlabored bilaterally - PWD - no needs voiced
--- NOTE | 2022-01-18 05:15 | PC.NURSE ---
No changes in pt status
--- NOTE | 2022-01-18 06:00 | PC.NURSE ---
MD to bedside - pt resting quietly in NAD - no needs voiced at this time - respirations equal and unlabored bilaterally - PWD - allowed to rest some
--- NOTE | 2022-01-18 06:08 | ED_ITS ---
HPI - Asthma General Chief Complaint: Asthma Stated Complaint: sob/asthma attack Time Seen by Provider: 01/18/22 01:51 Source: patient Mode of arrival: Ambulatory History of Present Illness HPI Narrative: Patient is a 21-year-old female history of asthma presenting today with extreme shortness of breath and tightness. She says she has been having some shortness of breath and problems ongoing for the past couple of days she denies fever or chills. Tonight she felt like she really could not breathe. She is satting 88% on room air and has obvious conversational dyspnea. She has never previously been intubated she was hospitalized when she was younger. Related Data Previous Rx's Medication Instructions Recorded albuterol sulfate 0.63 mg/3 mL 0.63 mg (3 mL) inhalation QID PRN 05/28/21 solution for nebulization shortness of breath or wheezing #75 mL cetirizine 10 mg tablet (Zyrtec) 10 mg PO DAILY PRN allergy 06/03/21 symptoms #30 tabs lidocaine 5 % topical patch 1 patch topical DAILY #15 ea 06/03/21 (Lidoderm) methocarbamol 500 mg tablet 500 mg PO TID PRN muscle spasm #14 06/03/21 tabs omeprazole magnesium 20 mg 20 mg PO DAILY #7 tabs 06/03/21 tablet,delayed release albuterol sulfate 90 mcg/actuation 1 inh inhalation Q4-6H PRN 06/25/21 aerosol inhaler shortness of breath or wheezing #8.5 grams beclomethasone dipropionate 80 1 inh inhalation BID #10.6 grams 06/25/21 mcg/actuation HFA breath activated aerosol (Qvar RediHaler) fluticasone propionate 50 See Rx Instructions .Route 07/08/21 mcg/actuation nasal .COMPLEX #16 grams spray,suspension montelukast 10 mg tablet See Rx Instructions .Route 07/08/21 .COMPLEX #30 tabs albuterol sulfate 2.5 mg/3 mL 2.5 mg (3 mL) inhalation QID PRN 01/18/22 (0.083 %) solution for nebulization bronchospasm #75 mL albuterol sulfate 90 mcg/actuation 2 puff inhalation Q4-6H PRN 01/18/22 aerosol inhaler shortness of breath or wheezing #8.5 grams prednisone 10 mg tablet 10 mg PO DAILY #30 tabs 01/18/22 Allergies Allergy/AdvReac Type Severity Reaction Status Date / Time No Known Drug Allergies Allergy Verified 01/18/22 01:52 Review of Systems Review of Systems Narrative: GENERAL: Denies chills, fatigue, malaise, fever, sweats, travel HEENT: Denies sinus pain, ear pain, sore throat, difficulty swallowing, neck pain RESPIRATORY: See HPI CARDIOVASCULAR: Denies chest pain, palpitations, orthopnea, edema GASTROINTESTINAL: Denies nausea, vomiting, abdominal pain, diarrhea, constipation, melena. : Denies dysuria, frequency, incontinence, hematuria, urinary retention, flank pain. MUSCULOSKELETAL: Denies weakness, joint pain, or bony pain SKIN: No rash, no erythema, no pruritus NEUROLOGIC: Denies weakness, dizziness, headache, numbness, change in speech, confusion PSYCHIATRIC: No concerning psychosocial issues. 12 point review of systems is negative except for those stated above and HPI Patient History Medical History Asthma Social History Smoking Status: Current every day smoker alcohol intake: current (Occasionally ) substance use type: marijuana (Some days ) Smoking Status: Current every day smoker tobacco type: vaping alcohol intake frequency: holidays/special occasions only Substance Use Type: does not use Exam Initial Vital Signs Initial Vital Signs: Vital Signs Pulse Rate 115 H 01/18/22 01:50 Respiratory Rate 26 H 01/18/22 01:50 Pulse Oximetry 95 01/18/22 01:50 Oxygen Delivery Method 01/18/22 01:50 GENERAL: Alert 21-year-old female in moderate respiratory distress HEENT: Head atraumatic,EOMI, pupils reactive, face symmetric, moist mucous membranes CARDIOVASCULAR: Regular rate and rhythm without murmurs, rubs or gallops. RESPIRATORY: Decreased breath sounds bilaterally, no wheezing minimal air movement conversational dyspnea speaking in 1-2 word sentences ABDOMEN: Soft, nontender. Normoactive bowel sounds all 4 quadrants. No guarding or rebound. EXTREMITIES: Normal range of motion, no clubbing or edema. Neurovascularly intact NEUROLOGICAL: Alert and oriented x4. SKIN: Warm, dry, no laceration, no petechiae, no rashes or lesions. Course Orders Ordered: Discontinued Medications Albuterol (Albuterol 2.5 Mg/3 Ml Neb (Adult)) 20 mg INH NOW ONE Stop: 01/18/22 01:52 Last Admin: 01/18/22 01:58 Dose: 20 mg Documented By: JOAQUIN Albuterol (Albuterol 2.5 Mg/3 Ml Neb (Adult)) 2.5 mg INH NOW ONE Stop: 01/18/22 02:04 Last Admin: 01/18/22 01:51 Dose: 2.5 mg Documented By: JOAQUIN Sodium Chloride (Normal Saline 0.9%) 1,000 mls @ 1,000 mls/hr IV BOLUS ONE Stop: 01/18/22 02:50 Last Infusion: 01/18/22 03:07 Dose: 0 mls/hr Documented By: Admin: 01/18/22 02:05 Dose: 1,000 mls/hr Documented By: TONY Methylprednisolone (Methylprednisolone 125 Mg/2 Ml Vial) 125 mg IV NOW ONE Stop: 01/18/22 01:52 Last Admin: 01/18/22 02:05 Dose: 125 mg Documented By: TONY Vital Signs Vital signs: Vital Signs - 8 hr 01/18/22 01:52 01/18/22 01:50 01/18/22 02:13 Temperature 97.4 F L Pulse Rate 123 H 115 H Respiratory Rate 32 H 26 H Blood Pressure 184/94 H Pulse Oximetry 84 L 95 Oxygen Delivery Method Room Air Aerosol Mask Oxygen Flow Rate Fraction of Inspired Oxygen 01/18/22 02:13 01/18/22 02:29 01/18/22 02:30 Temperature Pulse Rate 124 H 118 H Respiratory Rate Blood Pressure 130/69 Pulse Oximetry 98 98 Oxygen Delivery Method Oxygen Flow Rate Fraction of Inspired Oxygen 01/18/22 01:58 01/18/22 02:30 01/18/22 03:01 Temperature Pulse Rate 115 H 120 H 133 H Respiratory Rate 28 H Blood Pressure Pulse Oximetry 95 98 97 Oxygen Delivery Method Nasal Cannula Oxygen Flow Rate 5 Fraction of Inspired Oxygen 40 01/18/22 03:02 01/18/22 03:02 01/18/22 03:30 Temperature Pulse Rate 130 H Respiratory Rate Blood Pressure 129/70 114/61 Pulse Oximetry 98 Oxygen Delivery Method Oxygen Flow Rate Fraction of Inspired Oxygen 01/18/22 03:30 01/18/22 04:00 01/18/22 04:00 Temperature Pulse Rate 126 H 105 H Respiratory Rate Blood Pressure 116/56 L Pulse Oximetry 95 92 Oxygen Delivery Method Oxygen Flow Rate Fraction of Inspired Oxygen 01/18/22 04:30 01/18/22 04:30 01/18/22 05:00 Temperature Pulse Rate 115 H Respiratory Rate Blood Pressure 120/61 105/53 L Pulse Oximetry 93 Oxygen Delivery Method Oxygen Flow Rate Fraction of Inspired Oxygen 01/18/22 05:00 01/18/22 05:30 01/18/22 05:30 Temperature Pulse Rate 103 H 101 H Respiratory Rate Blood Pressure 106/55 L Pulse Oximetry 91 92 Oxygen Delivery Method Oxygen Flow Rate Fraction of Inspired Oxygen MDM - Asthma Lab Data Result diagrams: 01/18/22 01:55 01/18/22 01:55 Labs: Lab Results 01/18/22 01/18/22 01/18/22 Range/Units 01:50 01:55 01:55 WBC 15.7 H (4.5-11.0) X10^3/uL RBC 5.02 (4.0-5.2) X10^6/uL Hgb 15.0 (12.0-16.0) g/dL Hct 44.7 (36-46) % MCV 89.0 (80-100) fL MCH 29.9 (26-34) PG MCHC 33.6 (30-36) % RDW 13.4 (11.6-14.8) % Plt Count 315 (150-400) X10^3/uL Neut % (Auto) 47.4 L (50-75) % Lymph % (Auto) 34.4 (25-40) % [place] % (Auto) 8.2 (3-14) % Eos % (Auto) 9.1 H (2-4) % Baso % (Auto) 0.9 (0-2) % Neut # (Auto) 7400 H (1873-6074) /uL Lymph # (Auto) 5400 H (3905-7432) /uL [place] # (Auto) 1300 H (0-900) /uL Eos # (Auto) 1400 H (0-450) /uL Baso # (Auto) 100 (0-100) /uL Sodium 144 (137-145) mmol/L Potassium 4.1 (3.4-5.1) mmol/L Chloride 107 (98-107) mmol/L Carbon Dioxide 24 (22-32) mmol/L BUN 14 (7-17) mg/dL Creatinine 0.88 (0.52-1.04) mg/dL Estimated GFR > 60 (>60) mL/min BUN/Creatinine Ratio 15.9 (6-22) Glucose 86 (70-100) mg/dL Calcium 8.9 (8.4-10.2) mg/dL Magnesium 2.1 (1.6-2.3) mg/dL Total Bilirubin 0.5 (0.2-1.3) mg/dL AST 26 (14-36) IU/L ALT 21 (<35) IU/L Alkaline Phosphatase 130 H (38-126) U/L Total Protein 8.4 H (6.3-8.2) g/dL Albumin 4.7 (3.5-5.0) g/dL Globulin 3.7 (1.7-4.1) g/dL Albumin/Globulin Ratio 1.3 (1.0-2.8) Chlamy pneumoniae PCR Not detected (Not Detect) Adenovirus (PCR) Not detected (Not Detect) B. pertussis DNA (PCR) Not detected (Not Detecte) B.parapertussis DNA PCR Not detected (Not Detecte) Coronavirus OC43 (PCR) Not detected (Not Detect) Coronavirus HKU1 (PCR) Not detected (Not Detect) Coronavirus 229E (PCR) Not detected (Not Detect) SARS-CoV-2 (PCR) Not detected (Not Detecte) Coronavirus NL63 (PCR) Not detected (Not Detect) Human Metapneumovir PCR Not detected (Not Detect) Influenza Type A (PCR) Not detected (Not Detect) Influenza Type B (PCR) Not detected (Not Detect) M. pneumoniae (PCR) Not detected (Not Detect) Parainfluenza 1 (PCR) Not detected (Not Detect) Parainfluenza 2 (PCR) Not detected (Not Detect) Parainfluenza 3 (PCR) Not detected (Not Detect) Parainfluenza 4 (PCR) Not detected (Not Detect) RSV (PCR) Not detected (Not Detect) Entero/Rhino (PCR) Not detected (Not Detect) MDM Narrative Medical decision making narrative: Patient has obvious asthma exacerbation she is given continuous nebulizer 20 mg and a DuoNeb. She is no longer require oxygen. Now sleeping and O2 is 92% on room air. Lungs are re-evaluated she has definitely more air movement and some wheezing. She is given a dose of Solu-Medrol. Respiratory panel is negative. At this time will send her home with a steroid taper. And more albuterol. Discharge Plan Departure Patient Disposition: Home Clinical Impression: Asthma exacerbation Instructions: DI for Asthma -- Adult Activity Restrictions/Additional Instructions: *You have been diagnosed with asthma exacerbation *What to do: At this time please use albuterol regularly. May require preve ntative medication as well. *Continue to take medications as directed--> SENT TO [facility] [place] Albuterol inhaler or nebulizer every 4 hours at least for the next 24-48 hours Prednisone 40 mg once a day for 3 days, 30 mg once a day for 3 days, 20 mg once a day for 3 days, 10 mg once a day for 3 days *Follow up with your primary care provider in 2-3 days or call [phone] *Return to ER if you should have any difficulty breathing chest tightness, or any new, worsening or concerning symptoms Prescriptions: New prednisone 10 mg tablet 10 mg PO DAILY Qty: 30 0RF Rx Instructions: day 1-3: 40 mg once a day day 4-6: 30 mg once a day day 7-9: 20 mg once a day day 10-12: 10 mg once a day albuterol sulfate 2.5 mg /3 mL (0.083 %) solution for nebulization 2.5 mg inhalation QID PRN (Reason: bronchospasm) Qty: 75 0RF albuterol sulfate 90 mcg/actuation HFA aerosol inhaler 2 puff INHALATION Q4-6H PRN (Reason: shortness of breath or wheezing) Qty: 8.5 0RF No Action montelukast 10 mg tablet See Rx Instructions .ROUTE .COMPLEX Qty: 30 0RF Dose Instruction: TAKE 1 TABLET BY MOUTH AT BEDTIME FOR ASTHMA Rx Instructions: TAKE 1 TABLET BY MOUTH AT BEDTIME FOR ASTHMA fluticasone propionate 50 mcg/actuation spray,suspension See Rx Instructions .ROUTE .COMPLEX Qty: 16 0RF Dose Instruction: SHAKE LIQUID AND USE 1 SPRAY IN EACH NOSTRIL TWICE DAILY FOR ALLERGY SYMPTOMS Rx Instructions: SHAKE LIQUID AND USE 1 SPRAY IN EACH NOSTRIL TWICE DAILY FOR ALLERGY SYMPTOMS Qvar RediHaler 80 mcg/actuation HFA aerosol breath activated 1 inh inhalation BID Qty: 10.6 5RF Rx Instructions: administer with spacer albuterol sulfate 90 mcg/actuation HFA aerosol inhaler 1 inh inhalation Q4-6H PRN (Reason: shortness of breath or wheezing) Qty: 8.5 5RF albuterol sulfate 0.63 mg/3 mL solution for nebulization 0.63 mg INHALATION QID PRN (Reason: shortness of breath or wheezing) Qty: 75 0RF cetirizine [Zyrtec] 10 mg tablet 10 mg PO DAILY PRN (Reason: allergy symptoms) Qty: 30 0RF methocarbamol 500 mg tablet 500 mg PO TID PRN (Reason: muscle spasm) Qty: 14 0RF lidocaine [Lidoderm] 5 % adhesive patch,medicated 1 patch topical DAILY Qty: 15 0RF Rx Instructions: leave on most painful area for up to 12 hrs omeprazole magnesium 20 mg tablet,delayed release (DR/EC) 20 mg PO DAILY Qty: 7 0RF Referrals: Brigid Jewell MD [Primary Care Provider] - Visit Report Forms: Patient Portal/API
== END 2022-01-18 06:45 | disposition home or self-care (01) ==
PROVIDERS: Emergency Provider Emergency Medicine; PCP Family Medicine
DX: J45.901 Unspecified asthma with (acute) exacerbation (principal); Z20.822 Contact with and (suspected) exposure to COVID-19
CPT/HCPCS: 36415; 71045; 80053; 83735; 85025; 87633; 94640; 96361; 96374; 99284; J2930; J7613

== ENCOUNTER 2022-02-13 14:16 | Emergency (ER) | payer OTHER, BC, SELFPAY ==
[2022-02-13 14:27] VITALS: BP 109/57; PULSE 84; RESP 15; TEMP 37; O2SAT 99; BMI 17.9
[2022-02-13 17:08] LABS: Amorphous Sediment Urine 1+; Bacteria Urine Occasional (0-1); Culture Indicated Urine Specimen Cultured; RBC Urine >100/HPF (0-5/HPF); Squamous Epithelial Cell Urine 1-5 /HPF (0-5/HPF); WBC Urine 1-5/HPF (0-5/HPF)
--- NOTE | 2022-02-13 18:45 | PC.NURSE ---
Pt spoke to admitting staff states that when we were looking for her to do vital signs she was out there the whole time.
[2022-02-13 18:56] VITALS: BP 120/61; PULSE 87; O2SAT 97
--- NOTE | 2022-02-13 19:14 | ED_ITS ---
HPI - Female Genitourinary <Tory Mcintosh CATTLE TRADER - Last Filed: 02/13/22 19:20> General Chief complaint: Urogenital-Female Stated complaint: UTI, blood in urine t-0 Time Seen by Provider: 02/13/22 19:02 Source: patient Mode of arrival: Ambulatory History of Present Illness HPI Narrative: This is a 21-year-old female presents to the emergency department complaining of dysuria which started this morning, burning sensation with urinary frequency and urgency. States that she has obvious hematuria and not had this before, denies any vaginal discharge changes, states it is not her normal menses, denies recent or pelvic pain. Denies flank pain, fever, chills, nausea vomiting. Related Data Previous Rx's Medication Instructions Recorded albuterol sulfate 0.63 mg/3 mL 0.63 mg (3 mL) inhalation QID PRN 05/28/21 solution for nebulization shortness of breath or wheezing #75 mL cetirizine 10 mg tablet (Zyrtec) 10 mg PO DAILY PRN allergy 06/03/21 symptoms #30 tabs lidocaine 5 % topical patch 1 patch topical DAILY #15 ea 06/03/21 (Lidoderm) methocarbamol 500 mg tablet 500 mg PO TID PRN muscle spasm #14 06/03/21 tabs omeprazole magnesium 20 mg 20 mg PO DAILY #7 tabs 06/03/21 tablet,delayed release albuterol sulfate 90 mcg/actuation 1 inh inhalation Q4-6H PRN 06/25/21 aerosol inhaler shortness of breath or wheezing #8.5 grams beclomethasone dipropionate 80 1 inh inhalation BID #10.6 grams 06/25/21 mcg/actuation HFA breath activated aerosol (Qvar RediHaler) fluticasone propionate 50 See Rx Instructions .Route 07/08/21 mcg/actuation nasal .COMPLEX #16 grams spray,suspension montelukast 10 mg tablet See Rx Instructions .Route 07/08/21 .COMPLEX #30 tabs albuterol sulfate 2.5 mg/3 mL 2.5 mg (3 mL) inhalation QID PRN 01/18/22 (0.083 %) solution for nebulization bronchospasm #75 mL albuterol sulfate 90 mcg/actuation 2 puff inhalation Q4-6H PRN 01/18/22 aerosol inhaler shortness of breath or wheezing #8.5 grams prednisone 10 mg tablet 10 mg PO DAILY #30 tabs 01/18/22 cephalexin 500 mg capsule 500 mg PO BID 5 days #10 caps 02/13/22 phenazopyridine 100 mg tablet 100 mg PO Q8H PRN pain #21 tabs 02/13/22 (Pyridium) Allergies Allergy/AdvReac Type Severity Reaction Status Date / Time No Known Drug Allergies Allergy Verified 02/13/22 14:27 Patient History <AMBERLY Dinh - Last Filed: 02/13/22 19:20> Medical History Asthma tobacco type: vaping alcohol intake frequency: holidays/special occasions only Substance Use Type: does not use Exam <AMBERLY Dinh - Last Filed: 02/13/22 19:20> Narrative Exam Narrative: Reviewed vitals signs and nursing notes. General: cooperative, comfortable, in no acute distress, well groomed HEENT: symmetrical facial expressions, moist mucous membranes GI: abdomen soft, nontender to palpation, no CVAT tenderness MSK: moves all extremities, neurovascularly intact, no weakness, normal tone Skin: brisk capillary refill, without pallor or erythema Neuro: normal speech and cognition, A&O x3, ambulatory, clear speech Psych: mental status is grossly normal, congruent mood, normal affect, pleasant and cooperative Initial Vital Signs Initial Vital Signs: Vital Signs Temperature 98.6 F 02/13/22 14:27 Pulse Rate 84 02/13/22 14:27 Respiratory Rate 15 02/13/22 14:27 Blood Pressure 109/57 L 02/13/22 14:27 Pulse Oximetry 99 02/13/22 14:27 Oxygen Delivery Method 02/13/22 14:27 <Carlita Esparza MD - Last Filed: 02/14/22 01:27> Initial Vital Signs Initial Vital Signs: Vital Signs Temperature 98.6 F 02/13/22 14:27 Pulse Rate 84 02/13/22 14:27 Respiratory Rate 15 02/13/22 14:27 Blood Pressure 109/57 L 02/13/22 14:27 Pulse Oximetry 99 02/13/22 14:27 Oxygen Delivery Method 02/13/22 14:27 Course <AMBERLY Dinh - Last Filed: 02/13/22 19:20> Orders Ordered: Discontinued Medications Acetaminophen (Acetaminophen 325 Mg Tablet) 650 mg PO NOW ONE Stop: 02/13/22 19:08 Last Admin: 02/13/22 19:16 Dose: 650 mg Documented By: JILLIAN Cephalexin HCl (Cephalexin 250 Mg Capsule) 1,000 mg PO NOW ONE Stop: 02/13/22 19:07 Last Admin: 02/13/22 19:16 Dose: 1,000 mg Documented By: JILLIAN Ketorolac Tromethamine (Ketorolac 10 Mg Tablet) 10 mg PO NOW ONE Stop: 02/13/22 19:08 Last Admin: 02/13/22 19:16 Dose: 10 mg Documented By: JILLIAN Phenazopyridine HCl (Phenazopyridine 100 Mg Tablet) 200 mg PO NOW ONE Stop: 02/13/22 19:07 Last Admin: 02/13/22 19:16 Dose: 200 mg Documented By: JILLIAN Vital Signs Vital signs: Vital Signs - 8 hr 02/13/22 18:56 Pulse Rate 87 Blood Pressure 120/61 Pulse Oximetry 97 Oxygen Delivery Method Room Air <Carlita Esparza MD - Last Filed: 02/14/22 01:27> Orders Ordered: Discontinued Medications Acetaminophen (Acetaminophen 325 Mg Tablet) 650 mg PO NOW ONE Stop: 02/13/22 19:08 Last Admin: 02/13/22 19:16 Dose: 650 mg Documented By: JILLIAN Cephalexin HCl (Cephalexin 250 Mg Capsule) 1,000 mg PO NOW ONE Stop: 02/13/22 19:07 Last Admin: 02/13/22 19:16 Dose: 1,000 mg Documented By: JILLIAN Ketorolac Tromethamine (Ketorolac 10 Mg Tablet) 10 mg PO NOW ONE Stop: 02/13/22 19:08 Last Admin: 02/13/22 19:16 Dose: 10 mg Documented By: JILLIAN Phenazopyridine HCl (Phenazopyridine 100 Mg Tablet) 200 mg PO NOW ONE Stop: 02/13/22 19:07 Last Admin: 02/13/22 19:16 Dose: 200 mg Documented By: JILLIAN Vital Signs Vital signs: Vital Signs - 8 hr 02/13/22 18:56 Pulse Rate 87 Blood Pressure 120/61 Pulse Oximetry 97 Oxygen Delivery Method Room Air [facility] - Female Genitourinary <AMBERLY Dinh - Last Filed: 02/13/22 19:20> Lab Data Labs: Lab Results 02/13/22 Range/Units 15:47 Urine RBC >100/hpf H (0-5/HPF) Urine WBC 1-5/hpf (0-5/HPF) Ur Squamous Epith Cells 1-5 /hpf (0-5/HPF) Amorphous Sediment 1+ Urine Bacteria Occasional (0-1) (None) Ur Culture Indicated? Specimen cultured Point of Care Testing Test Results Negative Urine Dip Bedside Urine Glucose 100 mg/dl Bedside Urine Bilirubin - Negative Bedside Urine Ketone - Negative Urine Specific Vanderbilt 1.015 Bedside Urine Occult Blood +++ Bedside Urine pH 6.5 Bedside Urine Protein + 30 Bedside Urine Urobilinogen - Negative Bedside Urine Nitrite - Negative Bedside Urine Leukocytes + 70 Esterase MDM Narrative Medical decision making narrative: This patient presents with symptoms consistent with acute uncomplicated urinary tract infection. UA positive for leukocytes and blood with panchito hematuria. Well-appearing without fever or systemic symptoms. Low suspicion for acute pyelonephritis given lack of fever, CVAT, or systemic features. Low suspicion for ureteral/kidney stone or infected stone. U-preg negative so doubt ectopic . Given Toradol, Pyridium, cephalexin in the emergency department, without prior urine culture for review or history of urinary tract infections. Differential diagnosis include torsion, malignancy, STI/PID, appendicitis, contact dermatitis, urethral trauma / lesion, interstitial cystitis, dehydration, atrophic vaginitis, retained foreign body, perineal infection. Will follow urine culture results, encouraged tylenol/motrin for pain, hydration, and recheck with primary care provider if not improving within 2 days, and return to the emergency department for worsening symptoms, vomiting, fever and chills. <Carlita Esparza MD - Last Filed: 02/14/22 01:27> Lab Data Labs: Lab Results 02/13/22 Range/Units 15:47 Urine RBC >100/hpf H (0-5/HPF) Urine WBC 1-5/hpf (0-5/HPF) Ur Squamous Epith Cells 1-5 /hpf (0-5/HPF) Amorphous Sediment 1+ Urine Bacteria Occasional (0-1) (None) Ur Culture Indicated? Specimen cultured Point of Care Testing Test Results Negative Urine Dip Bedside Urine Glucose 100 mg/dl Bedside Urine Bilirubin - Negative Bedside Urine Ketone - Negative Urine Specific Vanderbilt 1.015 Bedside Urine Occult Blood +++ Bedside Urine pH 6.5 Bedside Urine Protein + 30 Bedside Urine Urobilinogen - Negative Bedside Urine Nitrite - Negative Bedside Urine Leukocytes + 70 Esterase Discharge Plan Departure Patient Disposition: Home Clinical Impression: Acute cystitis with hematuria Instructions: DI for Urinary Tract Infection (UTI), DI for Hematuria Activity Restrictions/Additional Instructions: *You have been diagnosed with a urinary tract infection with blood in your urine today. Please take this antibiotic twice a day for the next 5 days, you should start to feel better in the next 24 hours, stay hydrated, take ibuprofen 600 mg every 6 hours, Tylenol 650 mg in addition to that and your pain should start to improve. Use Pyridium as needed for bladder spasms and burning. Please come back if you have worsening symptoms, pain in her side, fever chills or vomiting. *What to do: *Please continue to take your regular medications as directed. [ x] New medication prescriptions sent to your pharmacy: [ [facility]] [ ] New medication written as a paper prescription [ ] No new medications given *Please follow up with your primary care provider in 2-3 days, call for an appointment. Let them know you were seen in the Emergency Department and that we asked that you be seen for follow-up. We will electronically transmit a record of today's note if your PCP is in our system *If you do not have a primary care provider please contact [phone] to establish care with one of the [facility] primary care providers. *Return to Emergency Department if you should have any new, worsening, or concerning symptoms, such as [fever greater than 101F, chills, worsening pain, persistent vomiting or other bothersome symptoms]. Prescriptions: New cephalexin 500 mg capsule 500 mg PO BID 5 Days Qty: 10 0RF phenazopyridine [Pyridium] 100 mg tablet 100 mg PO Q8H PRN (Reason: pain) Qty: 21 0RF No Action montelukast 10 mg tablet See Rx Instructions .ROUTE .COMPLEX Qty: 30 0RF Dose Instruction: TAKE 1 TABLET BY MOUTH AT BEDTIME FOR ASTHMA Rx Instructions: TAKE 1 TABLET BY MOUTH AT BEDTIME FOR ASTHMA fluticasone propionate 50 mcg/actuation spray,suspension See Rx Instructions .ROUTE .COMPLEX Qty: 16 0RF Dose Instruction: SHAKE LIQUID AND USE 1 SPRAY IN EACH NOSTRIL TWICE DAILY FOR ALLERGY SYMPTOMS Rx Instructions: SHAKE LIQUID AND USE 1 SPRAY IN EACH NOSTRIL TWICE DAILY FOR ALLERGY SYMPTOMS Qvar RediHaler 80 mcg/actuation HFA aerosol breath activated 1 inh inhalation BID Qty: 10.6 5RF Rx Instructions: administer with spacer albuterol sulfate 90 mcg/actuation HFA aerosol inhaler 1 inh inhalation Q4-6H PRN (Reason: shortness of breath or wheezing) Qty: 8.5 5RF albuterol sulfate 0.63 mg/3 mL solution for nebulization 0.63 mg INHALATION QID PRN (Reason: shortness of breath or wheezing) Qty: 75 0RF cetirizine [Zyrtec] 10 mg tablet 10 mg PO DAILY PRN (Reason: allergy symptoms) Qty: 30 0RF methocarbamol 500 mg tablet 500 mg PO TID PRN (Reason: muscle spasm) Qty: 14 0RF lidocaine [Lidoderm] 5 % adhesive patch,medicated 1 patch topical DAILY Qty: 15 0RF Rx Instructions: leave on most painful area for up to 12 hrs omeprazole magnesium 20 mg tablet,delayed release (DR/EC) 20 mg PO DAILY Qty: 7 0RF prednisone 10 mg tablet 10 mg PO DAILY Qty: 30 0RF Rx Instructions: day 1-3: 40 mg once a day day 4-6: 30 mg once a day day 7-9: 20 mg once a day day 10-12: 10 mg once a day albuterol sulfate 2.5 mg /3 mL (0.083 %) solution for nebulization 2.5 mg inhalation QID PRN (Reason: bronchospasm) Qty: 75 0RF albuterol sulfate 90 mcg/actuation HFA aerosol inhaler 2 puff INHALATION Q4-6H PRN (Reason: shortness of breath or wheezing) Qty: 8.5 0RF Referrals: Brigid Jewell MD [Primary Care Provider] - Visit Report Forms: Patient Portal/API <Carlita Esparza MD - Last Filed: 02/14/22 01:27> [facility] I was immediately available in the department for consultation throughout this patient's visit. I agree with documentation as above. Carlita Esparza MD
[2022-02-13] MEDS: ACETAMINOPHEN 325 MG TABLET 650 MG PO (19:16)
[2022-02-13] MEDS: KETOROLAC 10 MG TABLET PO (19:16)
[2022-02-13] MEDS: PHENAZOPYRIDINE 100 MG TABLET 200 MG PO (19:16)
[2022-02-13] MEDS: cephALEXin 250 MG CAPSULE 1000 MG PO (19:16)
== END 2022-02-13 19:21 | disposition home or self-care (01) ==
PROVIDERS: Emergency Medicine; Emergency Provider Nurse Practitioner Critical Care Medicine; PCP Family Medicine
DX: N30.01 Acute cystitis with hematuria (principal)
CPT/HCPCS: 81003; 81015; 81025; 87077; 87086; 87147; 99283

== ENCOUNTER → 2022-08-28 14:38 | Outpatient (CLI) | payer OTHER, BC, SELFPAY | PROVIDERS: PCP Family Medicine; Visit Provider Nurse Practitioner Family | DX: N39.0 Urinary tract infection, site not specified (principal); N89.8 Other specified noninflammatory disorders of vagina | CPT/HCPCS: 87077; 87086; 87210 ==

== ENCOUNTER → 2023-02-16 15:25 | Outpatient (CLI) | payer OTHER, BC, SELFPAY ==
[2023-02-16 16:24] LABS: Pregnancy Test Urine Negative (Negative)
== END ==
PROVIDERS: PCP Family Medicine; Visit Provider Physician Assistant
DX: R30.0 Dysuria (principal)
CPT/HCPCS: 81025; 87077; 87086; 87147; 87210

== ENCOUNTER → 2023-02-24 13:08 | Outpatient (CLI) | payer OTHER, BC, SELFPAY | PROVIDERS: PCP Family Medicine; Visit Provider Nurse Practitioner Family | DX: R30.0 Dysuria (principal); N89.8 Other specified noninflammatory disorders of vagina | CPT/HCPCS: 87077; 87086; 87147; 87210 ==

== ENCOUNTER → 2023-06-09 08:50 | Outpatient (CLI) | payer OTHER, BC, SELFPAY ==
[2023-06-09 10:33] LABS: Add Manual Diff / Slide Review NO; Basophils Absolute Auto 100 /uL (0-100); Basophils Percent Auto 0.9 % (0-2); Eosinophils Absolute Auto 600 /uL (0-450); Eosinophils Percent Auto 6.9 % (2-4); Hematocrit 39.2 % (36-46); Hemoglobin 13.6 g/dL (12.0-16.0); Lymphocytes Absolute Auto 1900 /uL (1100-4500); Lymphocytes Percent Auto 21.9 % (25-40); Mean Corpuscular HGB Conc 34.6 % (30-36); Mean Corpuscular Hemoglobin 31.1 PG (26-34); Mean Corpuscular Volume 89.6 fL (80-100); Monocytes Absolute Auto 500 /uL (0-900); Monocytes Percent Auto 6.3 % (3-14); Neutrophils Absolute Auto 5400 /uL (1500-7000); Platelet Count 280 X10^3/uL (150-400); Red Blood Cell Count 4.37 X10^6/uL (4.0-5.2); Red Cell Distribution Width 13.2 % (11.6-14.8); White Blood Cell Count 8.5 X10^3/uL (4.5-11.0)
[2023-06-09 11:06] LABS: Alanine Aminotransferase 15 IU/L (<35); Albumin 4.5 g/dL (3.5-5.0); Albumin Globulin Ratio 1.6 (1.0-2.8); Alkaline Phosphatase 77 U/L (38-126); Aspartate Aminotransferase 23 IU/L (14-36); BUN Creatinine Ratio 18.6 (6-22); Bilirubin Total 0.7 mg/dL (0.2-1.3); Blood Urea Nitrogen 13 mg/dL (7-17); Calcium 9.5 mg/dL (8.4-10.2); Carbon Dioxide 26 mmol/L (22-32); Chloride 107 mmol/L (98-107); Estimated Glomerular Filt Rate > 60 mL/min (>60); Globulin 2.8 g/dL (1.7-4.1); Glucose 84 mg/dL (70-100); HEMOLYSIS < 15 (0-50); Sodium 139 mmol/L (137-145); Total Protein 7.3 g/dL (6.3-8.2)
[2023-06-09 11:31] LABS: TSH w/ Reflex to FT4 0.97 uIU/mL (0.47-4.68)
== END ==
LOC: LAB 08:52
PROVIDERS: PCP Nurse Practitioner Family; Referring Provider Nurse Practitioner Family; Visit Provider Nurse Practitioner Family
DX: F32.A Depression, unspecified (principal); J45.909 Unspecified asthma, uncomplicated; F41.9 Anxiety disorder, unspecified
CPT/HCPCS: 36415; 80053; 84443; 85025

== ENCOUNTER 2023-08-26 16:04 | Emergency (ER) | payer OTHER, BC, SELFPAY ==
[2023-08-26 16:07] VITALS: BP 139/81; PULSE 82; RESP 16; TEMP 36.9; O2SAT 96; BMI 19.5
--- NOTE | 2023-08-26 17:19 | ED_ITS ---
HPI - Recheck/Abnormal Lab/Rx General Chief Complaint: Recheck/Abnormal Lab/Rx Stated Complaint: asthma, out of medication Time Seen by Provider: 08/26/23 17:18 Source: patient Mode of arrival: Ambulatory History of Present Illness HPI narrative: 23-year-old female with history of asthma, worse with allergy symptoms, recent rescue inhaler use, ran out of medication, here for refill. Still feel some shortness of breath, would like a breathing treatment. No recent steroids oral. Denies chest pain Related Data Previous Rx's Medication Instructions Recorded albuterol sulfate 90 mcg/actuation 1 inh inhalation Q4-6H PRN 06/09/23 aerosol inhaler shortness of breath or wheezing #8.5 grams levonorgestrel 0.15 mg-ethinyl 1 tab PO DAILY #84 tabs 06/09/23 estradiol 0.03 mg tablet escitalopram oxalate 10 mg tablet 10 mg PO DAILY #90 tabs 06/24/23 fluticasone 100 mcg-salmeterol 50 1 inh inhalation DAILY #60 ea 08/25/23 mcg/dose blistr powdr for inhalation (Advair Diskus) prednisone 20 mg tablet 40 mg (2 x 20 mg) PO DAILY 5 days 08/26/23 #10 tabs Allergies Allergy/AdvReac Type Severity Reaction Status Date / Time No Known Drug Allergies Allergy Verified 08/26/23 16:11 Review of Systems Review of Systems Narrative: per HPI Patient History Medical History (Updated 08/26/23 @ 17:26 by Tai Curiel MD) Nicotine use Seasonal allergies Anxiety Asthma Social History Smoking Status: Current every day smoker alcohol intake: current (Occasionally ) substance use type: marijuana (Some days ) Smoking Status: Current every day smoker tobacco type: vaping alcohol intake frequency: holidays/special occasions only Substance Use Type: marijuana Exam Narrative Exam Narrative: GENERAL: Well-developed patient, in mild distress. HEAD: Atraumatic. Normocephalic. EYES: Pupils equal round and reactive. Extraocular motions intact. No scleral icterus. No injection or drainage. ENT: Nose without bleeding, purulent drainage. Throat without erythema, tonsi llar hypertrophy or exudate. Airway patent. NECK: Trachea midline. Non tender CARDIOVASCULAR: Regular rate and rhythm without murmurs, gallops, or rubs. RESPIRATORY: Slight wheeze on and expiration, speaks in full sentences, no retractions. No crackles. GASTROINTESTINAL: Abdomen soft, non-tender, nondistended. EXTREMITIES: No edema or joint tenderness. BACK: Nontender without deformity or crepitance. No flank tenderness. NEURO: AOx3. SKIN: No rash or erythema of visible areas Initial Vital Signs Initial Vital Signs: Vital Signs Temperature 98.4 F 08/26/23 16:07 Pulse Rate 82 08/26/23 16:07 Respiratory Rate 16 08/26/23 16:07 Blood Pressure 139/81 08/26/23 16:07 Pulse Oximetry 96 08/26/23 16:07 Oxygen Delivery Method Room Air 08/26/23 16:07 Course Orders Ordered: Discontinued Medications Albuterol (Albuterol Hfa Prepack) 1 box MISC DIRECTED ONE Stop: 08/26/23 17:20 Last Admin: 08/26/23 17:28 Dose: 1 box Documented By: ARNOLDO Albuterol (Albuterol 2.5 Mg/3 Ml Neb (Adult)) 2.5 mg INH NOW ONE Stop: 08/26/23 17:23 Last Admin: 08/26/23 17:28 Dose: 2.5 mg Documented By: ARNOLDO Prednisone (Prednisone 20 Mg Tablet) 40 mg PO NOW ONE Stop: 08/26/23 17:34 Last Admin: 08/26/23 17:37 Dose: 40 mg Documented By: FUENTES Vital Signs Vital signs: Vital Signs - 8 hr 08/26/23 16:07 Temperature 98.4 F Pulse Rate 82 Respiratory Rate 16 Blood Pressure 139/81 Pulse Oximetry 96 Oxygen Delivery Method Room Air MDM - Recheck/Abnormal Lab/Rx MDM Narrative Medical decision making narrative: 23yo female reuqests refill of her inhaler, more short of breath with recent use inhaler, no cough or fever, no URI constitutional symptoms, she thinks allergies are bothering her. No respiratory distress, slight wheeze end-expiration. SVN Albuterol improved, PO Prednisone dose in ED, further steroid Rx sent to her pharmacy. Improved, refill Albuterol inahler dispensed in ED Discharge Plan Departure Patient Disposition: Home Clinical Impression: Asthma exacerbation Activity Restrictions/Additional Instructions: History of asthma, wheezing on exam, no oxygen requirement, no respiratory distress, oral dose of prednisone steroid given, prescription for 5 day course given. Breathing treatment given. Refill of albuterol inhaler dispensed. Use inhaler as needed for shortness of breath symptoms. Recheck with your regular provider early next week. Return to this/nearest emergency department for any change worsening symptoms or any concerns prior Prescriptions: New prednisone 20 mg tablet 40 mg PO DAILY 5 Days Qty: 10 0RF No Action escitalopram oxalate 10 mg tablet 10 mg PO DAILY Qty: 90 3RF albuterol sulfate 90 mcg/actuation HFA aerosol inhaler 1 inh inhalation Q4-6H PRN (Reason: shortness of breath or wheezing) Qty: 8.5 5RF levonorgestrel-ethinyl estrad 0.15-0.03 mg tablet 1 tab PO DAILY Qty: 84 3RF fluticasone propion-salmeterol [Advair Diskus] 100-50 mcg/dose blister with device 1 inh inhalation DAILY Qty: 60 5RF Referrals: Patt Matthews, C[facility]ST[facility] [Primary Care Provider] - Stand Alone Forms: Patient Portal/API
[2023-08-26 17:28] VITALS: PULSE 76; RESP 18; O2SAT 99
[2023-08-26] MEDS: ALBUTEROL 2.5 MG/3 ML NEB (ADULT) INH (17:28)
[2023-08-26] MEDS: ALBUTEROL HFA PREPACK 1 BOX MISC (17:28)
[2023-08-26 17:31] VITALS: PULSE 65; RESP 16; O2SAT 95
[2023-08-26] MEDS: predniSONE 20 MG TABLET 40 MG PO (17:37)
--- NOTE | 2023-08-26 17:41 | PC.NURSE ---
Patient had improvement of breathing after her treatment by RT. She reports feeling better but is having sore lungs. RT at bedside
[2023-08-26 17:52] VITALS: BP 136/79; PULSE 66; RESP 14; O2SAT 99
== END 2023-08-26 17:57 | disposition home or self-care (01) ==
PROVIDERS: Emergency Provider Emergency Medicine; PCP Nurse Practitioner Family
DX: J45.901 Unspecified asthma with (acute) exacerbation (principal); F17.290 Nicotine dependence, other tobacco product, uncomplicated
CPT/HCPCS: 94640; 99283; J7613

== ENCOUNTER → 2023-11-02 15:08 | Outpatient (CLI) | payer OTHER, BC, SELFPAY | PROVIDERS: PCP Nurse Practitioner Family; Visit Provider Nurse Practitioner Family | DX: R30.0 Dysuria (principal); N89.8 Other specified noninflammatory disorders of vagina | CPT/HCPCS: 87077; 87086; 87147; 87210 ==